=== PATIENT | male | born 1970 | race Caucasian/White ===

== ENCOUNTER → 2021-04-19 10:18 | Outpatient (CLI) | payer OTHER, SELFPAY ==
--- NOTE | 2021-04-19 10:26 | XR_ITS ---
PROCEDURE: XR FOOT WT BEARING RT 3V CLINICAL INDICATION: chronic ankle/foot pain COMPARISON: CR XR FOOT WT BEARING LT 3V from 04/19/2021 FINDINGS: There is minimal cortical regularity involving the medial aspect of the base of the 1st metatarsal. This is of unknown clinical significance and could represent a small avulsion injury age indeterminate. The joint spaces are well-preserved. No significant degenerative/arthritic changes. No erosive changes evident. Other findings:None. IMPRESSION: Possible small avulsion fracture age indeterminate base of 1st metatarsal medially otherwise negative Dictated by: Rishabh Mcclure MD 04/19/2021 12:19 Rishabh Mcclure MD in [place] 04/19/2021 12:19
--- NOTE | 2021-04-19 10:26 | XR_ITS ---
PROCEDURE: XR ANKLE WT BEARING RT MIN 3V CLINICAL INDICATION: chronic ankle/foot pain COMPARISON: No exams were available for comparison FINDINGS: Bones: No fracture or dislocation. No lytic or blastic change. There is normal mineralization. Joints: The joint spaces are well-preserved. No significant degenerative/arthritic changes. No erosive changes evident. Other findings:None. IMPRESSION: Negative right ankle Dictated by: Rishabh Mcclure MD 04/19/2021 12:03 Rishabh Mcclure MD in [place] 04/19/2021 12:03
--- NOTE | 2021-04-19 10:26 | XR_ITS ---
PROCEDURE: XR FOOT WT BEARING LT 3V CLINICAL INDICATION: chronic ankle/foot COMPARISON: No exams were available for comparison FINDINGS: No fracture or dislocation. No lytic or blastic change. There is normal mineralization. The joint spaces are well-preserved. No significant degenerative/arthritic changes. No erosive changes evident. Other findings:None. IMPRESSION: No acute findings. Dictated by: Rishabh Mcclure MD 04/19/2021 12:27 Rishabh Mcclure MD in [place] 04/19/2021 12:27
--- NOTE | 2021-04-19 10:26 | XR_ITS ---
PROCEDURE: XR ANKLE WT BEARING LT MIN 3V CLINICAL INDICATION: chronic ankle/foot pain COMPARISON: No exams were available for comparison FINDINGS: Spurring is present at the tip of the medial malleolus. Well corticated calcific densities are present at the tip the lateral malleolus the largest at 8 mm and may be due to old fracture or ununited ossicles. The ankle mortise is preserved and the talar dome has an unremarkable appearance. Mild degenerative changes of the ankle joint with decrease in joint space anteriorly and minimal spurring of the anterior distal tibia. IMPRESSION: Degenerative changes as described above, no acute finding Dictated by: Rishabh Mcclure MD 04/19/2021 12:29 Rishabh Mcclure MD in [place] 04/19/2021 12:29
== END ==
PROVIDERS: PCP Family Medicine; Visit Provider Podiatrist
DX: M25.572 Pain in left ankle and joints of left foot (principal); M79.672 Pain in left foot; M25.571 Pain in right ankle and joints of right foot; M79.671 Pain in right foot; G89.29 Other chronic pain
CPT/HCPCS: 73610; 73630

== ENCOUNTER 2024-02-13 11:47 | Emergency (ER) | payer BC, SELFPAY ==
--- NOTE | 2024-02-13 12:07 | ED_ITS ---
Discharge Plan Disposition Patient Disposition: Home, Self-Care Condition: Good Prescriptions Prescriptions: New cephalexin 500 mg capsule 500 mg PO QID Qty: 40 0RF sulfamethoxazole-trimethoprim [Bactrim DS] 800-160 mg Tablet 1 tab PO BID Qty: 20 0RF mupirocin 2 % ointment 1 applic topical TID 7 Days Qty: 15 0RF No Action gabapentin 600 mg tablet 600 mg PO TID lisinopril 20 mg tablet 20 mg PO DAILY Trulicity 1.5 mg/0.5 mL pen injector 1.5 mg SQ WEEKLY glipizide 10 mg tablet 10 mg PO DAILY meloxicam 7.5 mg tablet 7.5 mg PO DAILY 30 Days Qty: 30 2RF Referrals Follow up/Referrals: Provider,Referral, [Primary Care Provider] - See instructions Dahlia Reyes DPM [Staff Physician] - See instructions Activity Restrictions/Add. Instructions Additional Instructions/Restrictions: Rest the extremity, Elevate the extremity as tolerated while you are resting. Keep the wound clean and dry. Watch the foot for signs of worsening infection, such as worsening redness, swelling, drainage, fever. etc. Take tylenol for pain. Follow up with your regular doctor. Follow up with podiatry. I put in a referral to Dr. Reyes. Please call her office and schedule an appointment. Her office phone number will be on this paperwork. GO TO THE ER FOR ANY WORSENING SYMPTOMS OR CONCERNS. Clinical Impressions Clinical Impression: Cellulitis of foot, right, Diabetes Stand Alone Forms Stand Alone Forms: Work/School Release Instructions Patient Instructions: Cellulitis Print Language Print Language: Latvian Discharge ED Provider: Jordan Zacarias [facility] General Stated complaint: Painand swelling in R foot Time Seen by Provider: 02/13/24 12:07 History of Present Illness Provider Complaint: He states that for the past 3 days he has had worsening redness and swelling of the top of his right foot. He is a known diabetic. Related Data Home Medications ?Medication ?Instructions ?Recorded ?Confirmed dulaglutide 1.5 mg/0.5 mL 1.5 mg SQ WEEKLY 04/19/21 07/30/21 subcutaneous pen injector (Trulicity) gabapentin 600 mg tablet 600 mg PO TID 04/19/21 07/30/21 glipizide 10 mg tablet 10 mg PO DAILY 04/19/21 07/30/21 lisinopril 20 mg tablet 20 mg PO DAILY 04/19/21 07/30/21 Previous Rx's ?Medication ?Instructions ?Recorded meloxicam 7.5 mg tablet 7.5 mg PO DAILY pain 30 days #30 04/19/21 tabs cephalexin 500 mg capsule 500 mg PO QID #40 caps 02/13/24 mupirocin 2 % topical ointment 1 applic topical TID 7 days #15 02/13/24 grams sulfamethoxazole 800 1 tab PO BID #20 tabs 02/13/24 mg-trimethoprim 160 mg tablet (Bactrim DS) Allergies Allergy/AdvReac Type Severity Reaction Status Date / Time No Known Allergies Allergy Verified 07/30/21 08:47 [facility] Disclaimer: The information contained in this section may have been updated after the patient was seen, as this information can be updated by other users. Social History Smoking Status: Never smoker alcohol intake: never current occupational status: employed Travel in the last 8 weeks: None ROS Obtained: Yes All systems reviewed & no additional complaints except as documented Constitutional Constitutional: Denies chills and Denies fever(s) Eyes Eyes: Denies eye discharge ENT Ears, Nose, Mouth, and Throat: Denies dizziness, Denies otalgia and Denies sore throat Cardiovascular Cardiovascular: Denies chest pain Respiratory Respiratory: Denies shortness of breath, Denies chest congestion, Denies cough, Denies stridor and Denies wheezing Gastrointestinal Gastrointestingal: Denies nausea or vomiting Musculoskeletal Musculoskeletal: Reports system reviewed and no additional complaints, except as documented and Denies arthralgias Integumentary/Breasts Skin/Breast: Reports as per HPI and Reports redness Neurologic Neurologic: Denies dizziness and Denies paresthesias Allergic/Immunologic Allergic/Immunologic: Denies wheezing Physical Exam General General appearance: alert and in no apparent distress Head Head exam: atraumatic, normocephalic and normal inspection Eye Eye exam: Present normal appearance, PERRL and EOMI ENT ENT exam: Present normal exam, normal oropharynx, mucous membranes moist, TM's normal bilaterally and normal external ear exam Neck Neck exam: Present normal inspection, full ROM and trachea midline; Absent meningismus or lymphadenopathy Chest Chest inspection: Present normal inspection and symmetric chest wall rise; Absent tenderness Respiratory Respiratory exam: Present normal lung sounds bilaterally; Absent respiratory distress Cardiovascular Cardiovascular exam: Present regular rate and normal rhythm; Absent JVD Abdominal Exam Abdominal exam: Present soft and normal bowel sounds; Absent distention, t enderness or guarding Extremities Exam Extremities exam: Present normal inspection, full ROM and normal capillary refill; Absent calf tenderness Back Exam Back exam: Present normal inspection; Absent tenderness Neurological Exam Neurological exam: Present alert and oriented X3 Psychiatric Psychiatric exam: Present normal affect and normal mood Skin Skin exam: Present erythema (there is mild swelling and edema of the dorsal aspect of his right foot. there is no open area and no drainage. ) Lymphatic Lymphatic Findings: no adenopathy Medical Decision Making Medical Records Medical records reviewed: No I reviewed the patient's medical records. Walker Inquiry Pt receiving controlled substance: No
[2024-02-13 12:12] VITALS: BP 170/95; PULSE 69; RESP 16; TEMP 36.7; O2SAT 99; BMI 35.4
[2024-02-13] MEDS: cefTRIAXone 1GM VIAL 1 GM IM (12:36)
[2024-02-13] MEDS: LIDOCAINE 1% 5ML PF VIAL IM (12:36)
[2024-02-13 13:45] VITALS: BP 170/95; PULSE 69; RESP 16; TEMP 36.7; O2SAT 99
== END 2024-02-13 13:46 | disposition home or self-care (01) ==
PROVIDERS: Emergency Provider Nurse Practitioner Family
DX: L03.115 Cellulitis of right lower limb (principal); E11.9 Type 2 diabetes mellitus without complications; Z79.84 Long term (current) use of oral hypoglycemic drugs; Z79.85 Long-term (current) use of injectable non-insulin antidiabetic drugs
CPT/HCPCS: 96372; 99204; 99212; G0463; J0696